=== PATIENT | male | born 1965 | race Caucasian/White ===

== ENCOUNTER 2018-11-01 11:37 | Day surgery (SDC) | payer OTHER, SELFPAY ==
[2018-11-01 13:19] VITALS: BP 139/75; PULSE 66; RESP 16; TEMP 37.1; O2SAT 99; BMI 24.4
[2018-11-01] MEDS: SODIUM CHLORIDE 0.9% 1,000 ML 200 ML IV (13:25)
--- NOTE | 2018-11-01 14:04 | PM.HP.1 ---
History of Present Illness Date Patient Seen: 11/01/18 Time Patient Seen: 14:04 Chief complaint: 12945 Narrative: 52yo M for low risk screening colonoscopy. No alarm symptoms, no family history. Patient History Social History household members: spouse Family & Social History Social History: household members spouse Meds Home Medications Medication Instructions Recorded Confirmed Type sertraline 37.5 mg PO DAILY 11/01/18 11/01/18 History Allergies Allergy/AdvReac Type Severity Reaction Status Date / Time Penicillins Allergy childhood, Verified 11/01/18 13:18 unknown Review of Systems Constitutional Constitutional: Reports as per HPI Exam Vital Signs (past 8 hours): - 11/01/18 13:19 Temperature 98.8 F Pulse Rate 66 Respiratory Rate 16 Blood Pressure 139/75 Pulse Oximetry 99 Oxygen Delivery Method Room Air Narrative Exam Narrative: AAO, NAD, male of healthy weight EOMI, MMM, no scleral icterus unlabored RA soft, nt/nd MAEW visible skin dry and intact Assessment & Plan (1) Screening for colon cancer: Current visit: Yes Status: Acute Assessment & Plan narrative: - low risk screening colonoscopy --> all R/B/A discussed and pt wishes to proceed
[2018-11-01] MEDS: MIDAZOLAM 5 MG/5 ML VIAL IV (14:39)
[2018-11-01] MEDS: fentaNYL 250 MCG/5 ML INJ IV (14:40)
[2018-11-01 15:01] VITALS: BP 117/72; PULSE 59; RESP 14; TEMP 36.2; O2SAT 98
[2018-11-01 15:06] VITALS: BP 132/91; PULSE 60; RESP 12; O2SAT 97
--- NOTE | 2018-11-01 15:12 | P.OP.ENDO_ITS ---
Operative Date/Time/Diagnoses Date of procedure: 11/01/18 Time of procedure: 15:10 Pre-op diagnosis: Need for colorectal cancer screening Post-op diagnosis: same Procedure & Clinicians Study performed: Low risk screening colonoscopy. Same procedure as scheduled: Yes Indications: 52yo M for first low risk screening colonoscopy. Surgeon: Latonia Bagley Procedure Notes SCOAP/Timeout: 1407 Procedure in detail: After obtaining informed consent, the patient was brought to the GI suite and placed in the left lateral decubitus position on the examination table. After placement of appropriate monitors, the patient was given incremental doses of Versed and Fentanyl until an appropriate level of sedation was achieved. A time out was held per SCOAP protocol. A digital rectal examination was performed and did not reveal any masses or obstructing lesions. The colonoscope was gently passed into the patient's anus and the entire colon navigated to the level of the cecum with moderate difficulty due to a tight splenic flexure turn and poor tolerance by patient. Despite high doses of medications, he had minimal response and was quite uncomfortable. Given these, we switched to a pediatric scope. With this and l ikely the few minutes to relax while exchaning, the turn was much less spasmed and while patient remained fairly awake and uncomfortable, the remainder of the scope was achieved uneventfully other than requiring intermittent abdominal pressure. Prep was adequate. Once in the cecum, the scope was slowly withdrawn being sure to go before and beyond all mucosal folds and prominences as able to get a thorough examination. No masses or polyps are noted. Other findings include a single small diverticula in the sigmoid colon. At the level of the rectal vault, the scope was retroflexed and the internal anal canal was examined. The scope was straightened and air aspirated from the colon. The instrument was removed from the patient's body and the procedure was concluded. The patient was allowed to awaken from sedation without difficulty and taken to the post-anesthesia care unit in good condition. Scope withdrawal time: 9 min Sedation minutes: 47 Findings: diverticulosis (single, small; in sigmoid colon) Specimen(s): none sent Complications: other (high tolerance to medications) Impression: 1. single diverticulum 2. high tolerance to pain medications, would recommend propofol sedation at next scope Recommendations: Colonscopy in 10 years and High fiber diet Follow up: as needed Disposition: PACU
[2018-11-01 15:14] VITALS: BP 120/85; PULSE 61; RESP 16; O2SAT 100
[2018-11-01 15:15] VITALS: BP 136/81; PULSE 70; RESP 18; TEMP 36.3; O2SAT 99
== END 2018-11-01 15:41 | disposition home or self-care (01) ==
PROVIDERS: PCP Family Medicine; Visit Provider Surgery
PROC: 0DJD8ZZ Inspection of Lower Intestinal Tract, Via Natural or Artificial Opening Endoscopic (ICD-10-PCS; CPT 45378; principal; 2018-11-01 14:00)
DX: Z12.11 Encounter for screening for malignant neoplasm of colon (principal); K57.30 Diverticulosis of large intestine without perforation or abscess without bleeding
CPT/HCPCS: 45378; 99152; 99153; J2250; J3010